=== PATIENT | female | born 1980 | race Caucasian/White ===

== ENCOUNTER → 2017-10-23 | Outpatient (REF) | LOC: M SMT 09:40 | DX: M54.5 Low back pain (principal) ==

== ENCOUNTER → 2021-09-28 | Outpatient (REF) | LOC: M PLAIMG 10:47 | PROVIDERS: ATTEND Internal Medicine | DX: M25.70 Osteophyte, unspecified joint (principal); M51.36 Other intervertebral disc degeneration, lumbar region; M51.87 Other intervertebral disc disorders, lumbosacral region; M50.021 Cervical disc disorder at C4-C5 level with myelopathy ==